=== PATIENT | female | born 1985 | race Hispanic/Latino ===

== ENCOUNTER 2017-10-04 19:31 | Emergency (ER) | payer OTHER ==
[~2017-10-04] VITALS: Ht 165.1 cm; Wt 83.9 kg
[2017-10-04] MEDS ORDERED: ONDANSETRON HCL 4 MG ORAL DISINTEGRATING TAB PO ONE (20:30)
[2017-10-04] MEDS ORDERED: SODIUM CHLORIDE 0.9% 1000ML 1,000 ML IV SCH ×2 (20:30→21:30)
[2017-10-04] MEDS ORDERED: POTASSIUM CHLORIDE 10 MEQ TABCR PO ONE (21:00)
[2017-10-04] MEDS ORDERED: PROMETHAZINE 25MG/ NS 50ML (IV) IV ONE (21:30)
[2017-10-04 22:45] VITALS: BP 110/72
== END 2017-10-04 22:46 | disposition home or self-care (01) ==
LOC: FSED 19:31
DX: O21.9 Vomiting of pregnancy, unspecified (principal); O23.11 Infections of bladder in pregnancy, first trimester; R19.7 Diarrhea, unspecified
CPT/HCPCS: 80053; 81003; 85025; 99283; J2550